=== PATIENT | female | born 1955 | race African-American/Black ===

== ENCOUNTER 2018-07-22 12:34 | Inpatient (IN) | payer OTHER ==
[2018-07-22 13:34] VITALS: BMI 23.5
--- NOTE | 2018-07-22 15:25 | HP ---
COWS - Scale Resting Pulse: 0= [place] 80 or Below Sweatin= Chills/Flushing Restless Observation: 3= Extraneous Movement Pupil Size: 0= Normal to Room Light Bone or Joint Aches: 4=Acute Joint/Muscle Pain Runny Nose/ Eye Tearin= Runny Nose/Eyes GI Upset > 30mins: 1= Stomach Cramp Tremor Observation: 1= Tremor [place], Not Seen Yawning Observation: 2= >3x During Session Anxiety or Irritability: 2=Irritable/Anxious Goose Flesh Skin: 0=Smooth Skin COWS Score: 16 Admission [facility] - [facility] Chief Complaint: HEROIN WITHDRAWAL SX Allergies/Adverse Reactions: Allergies Allergy/AdvReac Type Severity Reaction Status Date / Time No Known Allergies Allergy Verified 07/22/18 13:48 History of Present Illness: PT IS A 63 Y/O AA/FEMALE WITH A HX OF HEROIN DEPENDENCE SEEKING DETOX TX. PT REPORTS WAS HERE 14 YRS AGO AND HAS NOT BEEN IN ANOTHER TX UNTIL MAY 2018 WHEN SHE GOT ON SUBOXONE MAINTENACE WHICH WAS NOT SUSTAINED FOR LONG(SEE RECORD BELOW). PT STATES SHE STOPPED GOING BECAUSE HAD LIFE EVENTS INCLUDING HOMELESSNESS. PT ALSO REPORTS SHE IS CURRENTLY IN [facility] THAT REFERRED HER TO DETOX TODAY. Confidential Drug Utilization Report Search Terms: yakelin dodson, 1955 Search Date: 07/22/2018 03:13:52 PM The Drug Utilization Report below displays all of the controlled substance prescriptions, if any, that your patient has filled in the last twelve months. The information displayed on this report is compiled from pharmacy submissions to the Department, and accurately reflects the information as submitted by the pharmacies. This report was requested by: Radha Deal | Reference #: [id number] You have not added a ROS[facility]O number. Keeping your ROS[facility]O number(s) up to date on the My ROSENDO Numbers page will enable the separation of your prescriptions from others ' in the search results. Others' Prescriptions Patient Name: Yakelin Dodson Date: 1955 Address: [address] [place] [address] Sex: Female Rx Written Rx Dispensed Drug Quantity Days Supply Prescriber Name 06/10/2018 06/10/2018 suboxone 8 mg-2 mg sl film 4 2 Sandrine Love NP 06/05/2018 06/08/2018 suboxone 8 mg-2 mg sl film 16 8 Sandrine Love NP 05/29/2018 06/01/2018 suboxone 8 mg-2 mg sl film 14 7 Sandrine Love NP Exam Limitations: No Limitations - Ebola screening Have you traveled outside of the country in the last 21 days: No Have you had contact with anyone from an Ebola affected area: No Have you been sick,other than usual withdrawal symptoms: No Do you have a fever: No - Review of Systems Constitutional: Chills, Night Sweats, Changes in sleep EENT: reports: Blurred Vision (WEARS GLASSES), Tearing, Nose Congestion Respiratory: reports: No Symptoms reported Cardiac: reports: Lightheadedness GI: reports: Constipated, Nausea, Poor Fluid Intake : reports: No Symptoms Reported Musculoskeletal: reports: Back Pain, Joint Pain (RIGHT KNEE WITH SWELLING( WEARING KNEE BRACE)), Muscle Pain Integumentary: reports: No Symptoms Reported Neuro: reports: Unsteady Gait Endocrine: reports: No Symptoms Reported Hematology: reports: Anemia (ON IRO SUPPLEMENT) Psychiatric: reports: Orientated x3 Other Systems: Reviewed and Negative Patient History - Patient Medical History Hx Anemia: Yes (ON SUPPLEMENT) Hx Asthma: No Hx Chronic Obstructive Pulmonary Disease (COPD): No Hx Cardiac Disorders: No Hx Hypertension: Yes (newly diagnosed-; 173/84 TODAY;FORGOT NAME OF RX MEDICATION.) Hx Hypercholesterolemia: No HX Cerebrovascular Accident: No Hx Seizures: No Hx Diabetes: No Hx Gastrointestinal Disorders: No Hx Genitourinary Disorders: No Hx Sexually Transmitted Disorders: No (DENIES) Hx Renal Disease (ESRD): No Hx Thyroid Disease: No Hx Human Immunodeficiency Virus (HIV): No (NEGATIVE HX) Hx Hepatitis C: No Hx Depression: No Hx Suicide Attempt: No (DENIES S/I) Hx Schizophrenia: No - Patient Surgical History Past Surgical History: Yes Hx Neurologic Surgery: No Hx Cataract Extraction: No Hx Cardiac Surgery: No Hx Lung Surgery: No Hx Breast Surgery: No Hx Breast Biopsy: No Hx Abdominal Surgery: No Hx Appendectomy: No Hx Cholecystectomy: No Hx Genitourinary Surgery: No Hx Section: No Hx Orthopedic Surgery: No Hx Hysterectomy: Yes ( PARTIAL IN 1997) Anesthesia Reaction: No - PPD History Previous Implant?: Yes Documented Results: Negative w/o proof Implanted On Prior R Admission?: No Results: neg PPD to be Administered?: Yes - Reproductive History Patient is a Female of Child Bearing Age (11 -55 yrs old): Yes (HX OF PARTIAL HYSTERECTOMY) LMP comment: "IN MY 40s" Patient : No - Smoking Cessation Smoking history: Current every day smoker (LACED COCAINE WITH CIGARETTES) Have you smoked in the past 12 months: Yes Aproximately how many cigarettes per day: 2 Hx Chewing Tobacco Use: No Initiated information on smoking cessation: Yes 'Breaking Loose' booklet given: 07/22/18 - Substance & Tx. History Hx Alcohol Use: No Hx Substance Use: Yes (HEROIN/CRACK/COCAINE) Substance Use Type: Cocaine, Heroin Hx Substance Use Treatment: Yes (LAST TX AT [facility]) - Substances Abused Cocaine Route: Inhalation Frequency: Daily Amount used: 20 dollars Age of first use: 14 Date of Last Use: 07/21/18 Crack Route: Smoking Frequency: Daily Amount used: 20 dollars Age of first use: 30 Date of Last Use: 07/21/18 Heroin Route: Inhalation Frequency: Daily Amount used: 50 dollars Age of first use: 14 Date of Last Use: 07/21/18 Family Disease History - Family Disease History Family Disease History: Diabetes: Grandparent (GMOTHER-), Mother (HTN; ), Other: Mother Admission Physical Exam S - Vital Signs Vital Signs: Vital Signs - 24 hr 07/22/18 07/22/18 13:23 13:32 Temperature 97.2 F L 97.3 F L Pulse Rate 52 L 46 L Respiratory 20 17 Rate Blood Pressure 173/84 108/63 - Physical General Appearance: Yes: Moderate Distress, Irritable, Anxious HEENTM: Yes: EOMI, ELIZA, Pharynx Normal Respiratory: Yes: Chest Non-Tender, Lungs Clear, Normal Breath Sounds, No Respiratory Distress Neck: Yes: No masses,lesions,Nodules, Supple, Trachea in good position Breast: Yes: Breast Exam Deferred Cardiology: Yes: Regular Rhythm, S1, S2, Bradycardia Abdominal: Yes: Normal Bowel Sounds, Non Tender, Flat, Soft Genitourinary: Yes: Other (1999) Back: Yes: Within Normal Limits Musculoskeletal: Yes: full range of Motion, Gait Steady, Joint swelling (RIGHT KNEE(PT IS WEARING KNEE BRACE) Extremities: Yes: Normal Range of Motion, Non-Tender 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 NML intact, Fully Oriented, Alert Integumentary: Yes: Dry, Warm Lymphatic: Yes: Within Normal Limits - Diagnostic (1) Opioid dependence with withdrawal Current Visit: Yes Status: Chronic (2) Cocaine dependence, uncomplicated Current Visit: Yes Status: Chronic (3) Hypertension Current Visit: Yes Status: Chronic Qualifiers: Hypertension type: essential hypertension Qualified Code(s): I10 - Essential (primary) hypertension (4) History of anemia Current Visit: Yes Status: Suspected Cleared for Admission [facility] - Detox or Rehab [facility] Level of Care: Medically Managed Detox Regimen/Protocol: Methadone [facility] Breath Alcohol Content Breath Alcohol Content: 0 Urine Pregancy Test - Result Urine Test Results: Negative- NO Line Present Urine Drug Screen - Results Drug Screen Negative: No Urine Drug Screen Results: THC-Marijuana, OPI-Opiates, BZO-Benzodiazepines, MTD- Methadone, OXY-Oxycodone
[2018-07-22] MEDS ORDERED: P-EPHED 60MG/TRIPROLIDI 2.5MG TABLET PO PRN (16:11)
[2018-07-22] MEDS ORDERED: MAGNESIUM CITRATE 300 ML BOTTLE PO PRN (16:11)
[2018-07-22] MEDS ORDERED: LOPERAMIDE HCL 2 MG CAPSULE PO PRN (16:11)
[2018-07-22] MEDS ORDERED: diazePAM 5 MG TABLET PO PRN (16:11)
[2018-07-22] MEDS ORDERED: MAGNESIUM HYDROX 2400MG/30ML ORAL SUSPENSION 30 ML CUP PO PRN (16:11)
[2018-07-22] MEDS ORDERED: MAG HYDROX/AL HYDROX/SIMETH 30 ML UNIT-DOSE CUP PO PRN (16:11)
[2018-07-22] MEDS ORDERED: MENTHOL/PHENOL 1 EACH UD MM PRN (16:11)
[2018-07-22] MEDS ORDERED: METHADONE HCL 10 MG TABLET (FOR DETOX USE ONLY) PO ONE ×2 (17:45→23:00)
[2018-07-22] MEDS: amLODIPine BESYLATE 10 MG TABLET (FP) PO SCH (18:29)
[2018-07-22] MEDS ORDERED: MELATONIN 5 MG TABLETS PO PRN (22:00)
[2018-07-22] MEDS: THIAMINE HCL 100 MG TABLET (FP) PO SCH (22:06)
[2018-07-23 00:08] LABS: URINE APPEARANCE SLCLOUDY; URINE BILIRUBIN NEGATIVE (<2.0 mg/dL); URINE COLOR YELLOW; URINE GLUCOSE (UA) NEGATIVE (NEGATIVE); URINE KETONE NEGATIVE (NEGATIVE); URINE LEUK ESTERASE TRACE (NEGATIVE); URINE NITRITE NEGATIVE (NEGATIVE); URINE PROTEIN NEGATIVE (NEGATIVE); URINE UROBILINOGEN NEGATIVE mg/dL (0.2-1.0)
[2018-07-23 00:25] LABS: EPI CELLS MODERATE /HPF (FEW); URINE BACTERIA RARE /hpf (NONE SEEN); URINE MUCUS RARE
[2018-07-23] MEDS: guaiFENesin/D-METHORPHAN HB 10 ML UNIT-DOSE CUPS PO PRN (06:48)
[2018-07-23] MEDS: ACETAMINOPHEN 325 MG TABLET (FP) PO PRN ×2 (06:48→17:10)
[2018-07-23] MEDS ORDERED: METHADONE HCL 10 MG TABLET (FOR DETOX USE ONLY) PO ONE (10:00)
[2018-07-23 10:19] LABS: HEMOGLOBIN 11.3 GM/dL (10.7-15.3); MCH 26.7 pg (25.7-33.7); MCHC 32.3 g/dl (32.0-36.0); MEAN CELL VOLUME 82.5 fl (80-96); MEAN PLT VOLUME 7.4 fl (7.5-11.1); PLATELET COUNT 361 K/MM3 (134-434); RBC 4.25 M/mm3 (3.60-5.2); RDW 14.1 % (11.6-15.6); WHITE BLOOD COUNT 4.6 K/mm3 (4.0-10.0)
[2018-07-23] MEDS: amLODIPine BESYLATE 10 MG TABLET (FP) PO SCH (10:36)
[2018-07-23] MEDS: PRENATAL VITAMINS W/ FOLIC ACID TABLET (FP) PO SCH (10:36)
[2018-07-23] MEDS: IBUPROFEN 400 MG TABLET (FP) PO PRN (10:38)
[2018-07-23 11:40] LABS: SICKLE CELL SCREEN POSITIVE (NEGATIVE)
--- NOTE | 2018-07-23 11:49 | PN ---
S COWS - Scale Resting Pulse: 0= [place] 80 or Below Sweatin= Chills/Flushing Restless Observation: 1= Difficult to Sit Still Pupil Size: 1= Pupils >than Normal Bone or Joint Aches: 2= Severe Diffuse Aches Runny Nose/ Eye Tearin= Nasal Congestion GI Upset > 30mins: 2= Nausea/Diarrhea Tremor Observation of Outstretched Hands: 2= Slight Tremor Visible Yawning Observation: 2= >3x During Session Anxiety or Irritability: 2=Irritable/Anxious Goose Flesh Skin: 0=Smooth Skin COWS Score: 14 BHS Progress Note (SOAP) Subjective: joints pain body aches trouble sleep at night GI distress sweat tremor Objective: 07/23/18 11:48 Vital Signs Temperature 97.7 F 07/23/18 09:31 Pulse Rate 60 07/23/18 09:31 Respiratory Rate 18 07/23/18 09:31 Blood Pressure 130/84 07/23/18 09:31 O2 Sat by Pulse Oximetry (%) Laboratory Last Values WBC 4.6 K/mm3 (4.0-10.0) 07/23/18 07:30 RBC 4.25 M/mm3 (3.60-5.2) 07/23/18 07:30 Hgb 11.3 GM/dL (10.7-15.3) 07/23/18 07:30 Hct 35.0 % (32.4-45.2) 07/23/18 07:30 MCV 82.5 fl (80-96) 07/23/18 07:30 MCH 26.7 pg (25.7-33.7) 07/23/18 07:30 MCHC 32.3 g/dl (32.0-36.0) 07/23/18 07:30 RDW 14.1 % (11.6-15.6) 07/23/18 07:30 Plt Count 361 K/MM3 (134-434) 07/23/18 07:30 MPV 7.4 fl (7.5-11.1) L 07/23/18 07:30 Sickle Cell Screen Positive (NEGATIVE) 07/23/18 07:30 Urine Color Yellow 07/22/18 Unknown Urine Appearance Slcloudy 07/22/18 Unknown Urine pH 6.0 (5.0-8.0) 07/22/18 Unknown Ur Specific [place] 1.014 (1.001-1.035) 07/22/18 Unknown Urine Protein Negative (NEGATIVE) 07/22/18 Unknown Urine Glucose (UA) Negative (NEGATIVE) 07/22/18 Unknown Urine Ketones Negative (NEGATIVE) 07/22/18 Unknown Urine Blood Negative (NEGATIVE) 07/22/18 Unknown Urine Nitrite Negative (NEGATIVE) 07/22/18 Unknown Urine Bilirubin Negative (<2.0 mg/dL) 07/22/18 Unknown Urine Urobilinogen Negative mg/dL (0.2-1.0) 07/22/18 Unknown Ur Leukocyte Esterase Trace (NEGATIVE) 07/22/18 Unknown Urine WBC (Auto) 2 /hpf (3-5) 07/22/18 Unknown Urine RBC (Auto) 1 /hpf (0-3) 07/22/18 Unknown Ur Epithelial Cells Moderate /HPF (FEW) 07/22/18 Unknown Urine Bacteria Rare /hpf (NONE SEEN) 07/22/18 Unknown Urine Mucus Rare 07/22/18 Unknown lab noted Assessment: 07/23/18 11:48 withdrawal sx Plan: continue detox
--- NOTE | 2018-07-23 12:17 | EKG ---
Test Reason : Blood Pressure : / mmHG Vent. Rate : 048 BPM Atrial Rate : 048 BPM P-R Int : 208 ms QRS Dur : 096 ms QT Int : 428 ms P-R-T Axes : 057 029 041 degrees QTc Int : 382 ms SINUS BRADYCARDIA MODERATE VOLTAGE CRITERIA FOR LVH, MAY BE NORMAL VARIANT BORDERLINE ECG NO PREVIOUS ECGS AVAILABLE Confirmed by BRAD WAGGONER MD (2014) on 07/23/2018 12:17:41 PM Referred By: Confirmed By:BRAD WAGGONER MD
[2018-07-23 12:30] LABS: CHLORIDE 108 mmol/L (98-107); POTASSIUM 4.8 mmol/L (3.5-5.1); SODIUM 144 mmol/L (136-145)
[2018-07-23 12:56] LABS: ALBUMIN 3.5 g/dl (3.4-5.0); ALK PHOS 68 U/L (45-117); ANION GAP 8 MMOL/L (8-16); BILIRUBIN,TOTAL 0.7 mg/dL (0.2-1.0); BLOOD UREA NITROGEN 15 mg/dL (7-18); CALCIUM 9.8 mg/dL (8.5-10.1); CO2 28 mmol/L (21-32); CREATININE 0.9 mg/dL (0.55-1.02); GLUCOSE,RANDOM 91 mg/dL (74-106); SGOT/AST 16 U/L (15-37); SGPT/ALT 15 U/L (12-78); TOT PROT 7.6 g/dl (6.4-8.2)
[2018-07-23] MEDS: THIAMINE HCL 100 MG TABLET (FP) PO SCH (22:30)
[2018-07-23] MEDS: BACLOFEN 10 MG TABLET (FP) PO PRN (22:39)
[2018-07-24] MEDS: guaiFENesin/D-METHORPHAN HB 10 ML UNIT-DOSE CUPS PO PRN ×2 (07:14→17:31)
[2018-07-24] MEDS ORDERED: METHADONE HCL 5 MG TABLET (FOR DETOX USE ONLY) PO ONE (10:00)
[2018-07-24] MEDS: amLODIPine BESYLATE 10 MG TABLET (FP) PO SCH (10:25)
[2018-07-24] MEDS: BACLOFEN 10 MG TABLET (FP) PO PRN ×2 (10:25→22:17)
[2018-07-24] MEDS: PRENATAL VITAMINS W/ FOLIC ACID TABLET (FP) PO SCH (10:26)
[2018-07-24] MEDS: METHYL SALICYLATE/MENTHOL OINT 30 GM TUBE TP SCH ×2 (10:26→22:17)
--- NOTE | 2018-07-24 11:50 | PN ---
BHS COWS - Scale Resting Pulse: 0= [place] 80 or Below Sweatin=Flushed/Facial Moisture Restless Observation: 1= Difficult to Sit Still Pupil Size: 1= Pupils >than Normal Bone or Joint Aches: 2= Severe Diffuse Aches Runny Nose/ Eye Tearin= Nasal Congestion GI Upset > 30mins: 1= Stomach Cramp Tremor Observation of Outstretched Hands: 0= None Yawning Observation: 0= None Anxiety or Irritability: 1=Feels Anxious/Irritable Goose Flesh Skin: 0=Smooth Skin COWS Score: 9 BHS Progress Note (SOAP) Subjective: intewrrupted sleep, sweats, rt knee pain Objective: 07/24/18 11:48 Vital Signs Temperature 97.9 F 07/24/18 06:00 Pulse Rate 56 L 07/24/18 06:00 Respiratory Rate 18 07/24/18 06:00 Blood Pressure 121/68 07/24/18 06:00 O2 Sat by Pulse Oximetry (%) Laboratory Tests 07/22/18 07/23/18 07/23/18 Unknown 07:30 07:30 WBC 4.6 RBC 4.25 Hgb 11.3 Hct 35.0 MCV 82.5 MCH 26.7 MCHC 32.3 RDW 14.1 Plt Count 361 MPV 7.4 L Sickle Cell Screen Positive Sodium 144 Potassium 4.8 Chloride 108 H Carbon Dioxide 28 Anion Gap 8 BUN 15 Creatinine 0.9 Creat Clearance w eGFR > 60 Random Glucose 91 Calcium 9.8 Total Bilirubin 0.7 AST 16 ALT 15 Alkaline Phosphatase 68 Total Protein 7.6 Albumin 3.5 Urine Color Yellow Urine Appearance Slcloudy Urine pH 6.0 Ur Specific [place] 1.014 Urine Protein Negative Urine Glucose (UA) Negative Urine Ketones Negative Urine Blood Negative Urine Nitrite Negative Urine Bilirubin Negative Urine Urobilinogen Negative Ur Leukocyte Esterase Trace Urine WBC (Auto) 2 Urine RBC (Auto) 1 Ur Epithelial Cells Moderate Urine Bacteria Rare Urine Mucus Rare RPR Titer 07/23/18 07:30 WBC RBC Hgb Hct MCV MCH MCHC RDW Plt Count MPV Sickle Cell Screen Sodium Potassium Chloride Carbon Dioxide Anion Gap BUN Creatinine Creat Clearance w eGFR Random Glucose Calcium Total Bilirubin AST ALT Alkaline Phosphatase Total Protein Albumin Urine Color Urine Appearance Urine pH Ur Specific [place] Urine Protein Urine Glucose (UA) Urine Ketones Urine Blood Urine Nitrite Urine Bilirubin Urine Urobilinogen Ur Leukocyte Esterase Urine WBC (Auto) Urine RBC (Auto) Ur Epithelial Cells Urine Bacteria Urine Mucus RPR Titer Nonreactive pt aox3 in nad lying in bed rt knee swelling -pt has rt knee brace Assessment: 07/24/18 11:49 withdrawal sx;s rt knee arthritis Plan: cont detox increase fluids analgesic balm bid has ortho f/up
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
[2018-07-24] MEDS: THIAMINE HCL 100 MG TABLET (FP) PO SCH (22:17)
[2018-07-25] MEDS ORDERED: METHADONE HCL 5 MG TABLET (FOR DETOX USE ONLY) PO ONE (10:00)
[2018-07-25] MEDS: METHYL SALICYLATE/MENTHOL OINT 30 GM TUBE TP SCH ×2 (10:26→10:50)
[2018-07-25] MEDS: PRENATAL VITAMINS W/ FOLIC ACID TABLET (FP) PO SCH (10:27)
[2018-07-25] MEDS: amLODIPine BESYLATE 10 MG TABLET (FP) PO SCH (10:27)
[2018-07-25] MEDS ORDERED: NICOTINE POLACRILEX 2 MG GUM BUC PRN (11:53)
--- NOTE | 2018-07-25 12:28 | PN ---
S Progress Note (SOAP) Subjective: joints pain muscle cramping sweat tremor irritable Objective: 07/25/18 12:27 Vital Signs Temperature 98.1 F 07/25/18 09:26 Pulse Rate 56 L 07/25/18 09:26 Respiratory Rate 16 07/25/18 09:26 Blood Pressure 120/70 07/25/18 09:26 O2 Sat by Pulse Oximetry (%) Laboratory Last Values WBC 4.6 K/mm3 (4.0-10.0) 07/23/18 07:30 RBC 4.25 M/mm3 (3.60-5.2) 07/23/18 07:30 Hgb 11.3 GM/dL (10.7-15.3) 07/23/18 07:30 Hct 35.0 % (32.4-45.2) 07/23/18 07:30 MCV 82.5 fl (80-96) 07/23/18 07:30 MCH 26.7 pg (25.7-33.7) 07/23/18 07:30 MCHC 32.3 g/dl (32.0-36.0) 07/23/18 07:30 RDW 14.1 % (11.6-15.6) 07/23/18 07:30 Plt Count 361 K/MM3 (134-434) 07/23/18 07:30 MPV 7.4 fl (7.5-11.1) L 07/23/18 07:30 Sickle Cell Screen Positive (NEGATIVE) 07/23/18 07:30 Sodium 144 mmol/L (136-145) 07/23/18 07:30 Potassium 4.8 mmol/L (3.5-5.1) 07/23/18 07:30 Chloride 108 mmol/L (98-107) H 07/23/18 07:30 Carbon Dioxide 28 mmol/L (21-32) 07/23/18 07:30 Anion Gap 8 MMOL/L (8-16) 07/23/18 07:30 BUN 15 mg/dL (7-18) 07/23/18 07:30 Creatinine 0.9 mg/dL (0.55-1.02) 07/23/18 07:30 Creat Clearance w eGFR > 60 (>60) 07/23/18 07:30 Random Glucose 91 mg/dL (74-106) 07/23/18 07:30 Calcium 9.8 mg/dL (8.5-10.1) 07/23/18 07:30 Total Bilirubin 0.7 mg/dL (0.2-1.0) 07/23/18 07:30 AST 16 U/L (15-37) 07/23/18 07:30 ALT 15 U/L (12-78) 07/23/18 07:30 Alkaline Phosphatase 68 U/L (45-117) 07/23/18 07:30 Total Protein 7.6 g/dl (6.4-8.2) 07/23/18 07:30 Albumin 3.5 g/dl (3.4-5.0) 07/23/18 07:30 Urine Color Yellow 07/22/18 Unknown Urine Appearance Slcloudy 07/22/18 Unknown Urine pH 6.0 (5.0-8.0) 07/22/18 Unknown Ur Specific [place] 1.014 (1.001-1.035) 07/22/18 Unknown Urine Protein Negative (NEGATIVE) 07/22/18 Unknown Urine Glucose (UA) Negative (NEGATIVE) 07/22/18 Unknown Urine Ketones Negative (NEGATIVE) 07/22/18 Unknown Urine Blood Negative (NEGATIVE) 07/22/18 Unknown Urine Nitrite Negative (NEGATIVE) 07/22/18 Unknown Urine Bilirubin Negative (<2.0 mg/dL) 07/22/18 Unknown Urine Urobilinogen Negative mg/dL (0.2-1.0) 07/22/18 Unknown Ur Leukocyte Esterase Trace (NEGATIVE) 07/22/18 Unknown Urine WBC (Auto) 2 /hpf (3-5) 07/22/18 Unknown Urine RBC (Auto) 1 /hpf (0-3) 07/22/18 Unknown Ur Epithelial Cells Moderate /HPF (FEW) 07/22/18 Unknown Urine Bacteria Rare /hpf (NONE SEEN) 07/22/18 Unknown Urine Mucus Rare 07/22/18 Unknown RPR Titer Nonreactive (NONREACTIVE) 07/23/18 07:30 lab noted Assessment: 07/25/18 12:28 withdrawal sx Plan: continue detox
[2018-07-25] MEDS: NICOTINE 14 MG/24 HOURS TOPICAL PATCH TD SCH (13:09)
[2018-07-25] MEDS: THIAMINE HCL 100 MG TABLET (FP) PO SCH (22:30)
[2018-07-25] MEDS: ACETAMINOPHEN 325 MG TABLET (FP) PO PRN (22:31)
[2018-07-25] MEDS: BACLOFEN 10 MG TABLET (FP) PO PRN (22:31)
[2018-07-26] MEDS: ACETAMINOPHEN 325 MG TABLET (FP) PO PRN (05:38)
[2018-07-26] MEDS ORDERED: METHADONE HCL 10 MG TABLET (FOR DETOX USE ONLY) PO ONE (10:00)
[2018-07-26] MEDS: PRENATAL VITAMINS W/ FOLIC ACID TABLET (FP) PO SCH (10:15)
[2018-07-26] MEDS: amLODIPine BESYLATE 10 MG TABLET (FP) PO SCH (10:15)
[2018-07-26] MEDS: METHYL SALICYLATE/MENTHOL OINT 30 GM TUBE TP SCH ×2 (10:16→22:19)
[2018-07-26] MEDS: BACLOFEN 10 MG TABLET (FP) PO PRN (10:16)
[2018-07-26] MEDS: NICOTINE 14 MG/24 HOURS TOPICAL PATCH TD SCH (10:17)
--- NOTE | 2018-07-26 12:24 | PN ---
S Progress Note (SOAP) Subjective: feeling better no tremor less sweat no gi distress social with peers in day room Objective: 07/26/18 12:23 Vital Signs Temperature 98.6 F 07/26/18 09:38 Pulse Rate 60 07/26/18 09:38 Respiratory Rate 16 07/26/18 09:38 Blood Pressure 125/75 07/26/18 09:38 O2 Sat by Pulse Oximetry (%) Laboratory Last Values WBC 4.6 K/mm3 (4.0-10.0) 07/23/18 07:30 RBC 4.25 M/mm3 (3.60-5.2) 07/23/18 07:30 Hgb 11.3 GM/dL (10.7-15.3) 07/23/18 07:30 Hct 35.0 % (32.4-45.2) 07/23/18 07:30 MCV 82.5 fl (80-96) 07/23/18 07:30 MCH 26.7 pg (25.7-33.7) 07/23/18 07:30 MCHC 32.3 g/dl (32.0-36.0) 07/23/18 07:30 RDW 14.1 % (11.6-15.6) 07/23/18 07:30 Plt Count 361 K/MM3 (134-434) 07/23/18 07:30 MPV 7.4 fl (7.5-11.1) L 07/23/18 07:30 Sickle Cell Screen Positive (NEGATIVE) 07/23/18 07:30 Sodium 144 mmol/L (136-145) 07/23/18 07:30 Potassium 4.8 mmol/L (3.5-5.1) 07/23/18 07:30 Chloride 108 mmol/L (98-107) H 07/23/18 07:30 Carbon Dioxide 28 mmol/L (21-32) 07/23/18 07:30 Anion Gap 8 MMOL/L (8-16) 07/23/18 07:30 BUN 15 mg/dL (7-18) 07/23/18 07:30 Creatinine 0.9 mg/dL (0.55-1.02) 07/23/18 07:30 Creat Clearance w eGFR > 60 (>60) 07/23/18 07:30 Random Glucose 91 mg/dL (74-106) 07/23/18 07:30 Calcium 9.8 mg/dL (8.5-10.1) 07/23/18 07:30 Total Bilirubin 0.7 mg/dL (0.2-1.0) 07/23/18 07:30 AST 16 U/L (15-37) 07/23/18 07:30 ALT 15 U/L (12-78) 07/23/18 07:30 Alkaline Phosphatase 68 U/L (45-117) 07/23/18 07:30 Total Protein 7.6 g/dl (6.4-8.2) 07/23/18 07:30 Albumin 3.5 g/dl (3.4-5.0) 07/23/18 07:30 Urine Color Yellow 07/22/18 Unknown Urine Appearance Slcloudy 07/22/18 Unknown Urine pH 6.0 (5.0-8.0) 07/22/18 Unknown Ur Specific [place] 1.014 (1.001-1.035) 07/22/18 Unknown Urine Protein Negative (NEGATIVE) 07/22/18 Unknown Urine Glucose (UA) Negative (NEGATIVE) 07/22/18 Unknown Urine Ketones Negative (NEGATIVE) 07/22/18 Unknown Urine Blood Negative (NEGATIVE) 07/22/18 Unknown Urine Nitrite Negative (NEGATIVE) 07/22/18 Unknown Urine Bilirubin Negative (<2.0 mg/dL) 07/22/18 Unknown Urine Urobilinogen Negative mg/dL (0.2-1.0) 07/22/18 Unknown Ur Leukocyte Esterase Trace (NEGATIVE) 07/22/18 Unknown Urine WBC (Auto) 2 /hpf (3-5) 07/22/18 Unknown Urine RBC (Auto) 1 /hpf (0-3) 07/22/18 Unknown Ur Epithelial Cells Moderate /HPF (FEW) 07/22/18 Unknown Urine Bacteria Rare /hpf (NONE SEEN) 07/22/18 Unknown Urine Mucus Rare 07/22/18 Unknown RPR Titer Nonreactive (NONREACTIVE) 07/23/18 07:30 lab noted Assessment: 07/26/18 12:23 mild withdrawal sx Plan: medically supervised detox
[2018-07-26] MEDS: THIAMINE HCL 100 MG TABLET (FP) PO SCH (22:19)
[2018-07-26] MEDS: IBUPROFEN 400 MG TABLET (FP) PO PRN (22:20)
[2018-07-27] MEDS: ACETAMINOPHEN 325 MG TABLET (FP) PO PRN (02:49)
[2018-07-27] MEDS ORDERED: METHADONE HCL 5 MG TABLET (FOR DETOX USE ONLY) PO ONE (06:00)
--- NOTE | 2018-07-27 08:35 | DS ---
[facility] Detox Discharge Summary Admission Date: 07/22/18 Discharge Date: 07/27/18 - History Present History: Opioid Dependence Additional Comments: 63 years old female admitted on 07/22/18 for opiate withdrawal sx completed opiate detox regimen tolerate well denies opiate withdrawal sx alert oriented x 3 no acute distress aftercare [facility] - Physical Exam Results Vital Signs: Vital Signs Temperature 97.7 F 07/27/18 06:00 Pulse Rate 57 L 07/27/18 06:00 Respiratory Rate 18 07/27/18 06:00 Blood Pressure 144/87 07/27/18 06:00 O2 Sat by Pulse Oximetry (%) Pertinent Admission Physical Exam Findings: opiate withdrawal sx Vital Signs Temperature 97.9 F 07/27/18 09:31 Pulse Rate 80 07/27/18 11:38 Respiratory Rate 18 07/27/18 11:38 Blood Pressure 148/97 07/27/18 11:38 O2 Sat by Pulse Oximetry (%) Laboratory Last Values WBC 4.6 K/mm3 (4.0-10.0) 07/23/18 07:30 RBC 4.25 M/mm3 (3.60-5.2) 07/23/18 07:30 Hgb 11.3 GM/dL (10.7-15.3) 07/23/18 07:30 Hct 35.0 % (32.4-45.2) 07/23/18 07:30 MCV 82.5 fl (80-96) 07/23/18 07:30 MCH 26.7 pg (25.7-33.7) 07/23/18 07:30 MCHC 32.3 g/dl (32.0-36.0) 07/23/18 07:30 RDW 14.1 % (11.6-15.6) 07/23/18 07:30 Plt Count 361 K/MM3 (134-434) 07/23/18 07:30 MPV 7.4 fl (7.5-11.1) L 07/23/18 07:30 Sickle Cell Screen Positive (NEGATIVE) 07/23/18 07:30 Sodium 144 mmol/L (136-145) 07/23/18 07:30 Potassium 4.8 mmol/L (3.5-5.1) 07/23/18 07:30 Chloride 108 mmol/L (98-107) H 07/23/18 07:30 Carbon Dioxide 28 mmol/L (21-32) 07/23/18 07:30 Anion Gap 8 MMOL/L (8-16) 07/23/18 07:30 BUN 15 mg/dL (7-18) 07/23/18 07:30 Creatinine 0.9 mg/dL (0.55-1.02) 07/23/18 07:30 Creat Clearance w eGFR > 60 (>60) 07/23/18 07:30 Random Glucose 91 mg/dL (74-106) 07/23/18 07:30 Calcium 9.8 mg/dL (8.5-10.1) 07/23/18 07:30 Total Bilirubin 0.7 mg/dL (0.2-1.0) 07/23/18 07:30 AST 16 U/L (15-37) 07/23/18 07:30 ALT 15 U/L (12-78) 07/23/18 07:30 Alkaline Phosphatase 68 U/L (45-117) 07/23/18 07:30 Total Protein 7.6 g/dl (6.4-8.2) 07/23/18 07:30 Albumin 3.5 g/dl (3.4-5.0) 07/23/18 07:30 Urine Color Yellow 07/22/18 Unknown Urine Appearance Slcloudy 07/22/18 Unknown Urine pH 6.0 (5.0-8.0) 07/22/18 Unknown Ur Specific [place] 1.014 (1.001-1.035) 07/22/18 Unknown Urine Protein Negative (NEGATIVE) 07/22/18 Unknown Urine Glucose (UA) Negative (NEGATIVE) 07/22/18 Unknown Urine Ketones Negative (NEGATIVE) 07/22/18 Unknown Urine Blood Negative (NEGATIVE) 07/22/18 Unknown Urine Nitrite Negative (NEGATIVE) 07/22/18 Unknown Urine Bilirubin Negative (<2.0 mg/dL) 07/22/18 Unknown Urine Urobilinogen Negative mg/dL (0.2-1.0) 07/22/18 Unknown Ur Leukocyte Esterase Trace (NEGATIVE) 07/22/18 Unknown Urine WBC (Auto) 2 /hpf (3-5) 07/22/18 Unknown Urine RBC (Auto) 1 /hpf (0-3) 07/22/18 Unknown Ur Epithelial Cells Moderate /HPF (FEW) 07/22/18 Unknown Urine Bacteria Rare /hpf (NONE SEEN) 07/22/18 Unknown Urine Mucus Rare 07/22/18 Unknown RPR Titer Nonreactive (NONREACTIVE) 07/23/18 07:30 lab noted - Treatment Hospital Course: Detox Protocol Followed, Detoxed Safely, Responded well, Discharged Condition Good, Rehab Referral Accepted Patient has Accepted a Rehab Referral to: [facility] - Medication Discharge Medications: Ambulatory Orders Ferrous Sulfate [Feosol] 325 mg PO DAILY 07/22/18 Amlodipine Besylate [Norvasc -] 5 mg PO DAILY #30 tablet 07/26/18 - Diagnosis (1) Anemia Status: Chronic Qualifiers: Anemia type: iron deficiency Iron deficiency anemia type: unspecified iron deficiency Qualified Code(s): D50.9 - Iron deficiency anemia, unspecified (2) Opioid dependence with withdrawal Status: Acute (3) Hypertension Status: Chronic Qualifiers: Hypertension type: essential hypertension Qualified Code(s): I10 - Essential (primary) hypertension - AMA Did Patient Leave Against Medical Advice: No
[2018-07-27] MEDS: NICOTINE 14 MG/24 HOURS TOPICAL PATCH TD SCH (09:21)
[2018-07-27] MEDS: METHYL SALICYLATE/MENTHOL OINT 30 GM TUBE TP SCH (09:21)
[2018-07-27] MEDS: PRENATAL VITAMINS W/ FOLIC ACID TABLET (FP) PO SCH (09:23)
[2018-07-27] MEDS: amLODIPine BESYLATE 10 MG TABLET (FP) PO SCH (09:23)
[2018-07-27 09:32] VITALS: TEMP 97.9
[2018-07-27 11:39] VITALS: BP 148/97; PULSE 80
[2018-07-29 16:22] LABS: HGB SOLUBILITY Positive (Negative); Hgb A 58.5 % (96.4-98.8); Hgb C 0 % (0.0); Hgb F 0 % (0.0-2.0); Hgb S 37.2 % (0.0)
== END 2018-07-27 10:18 | disposition home or self-care (01) | DRG 773 ==
LOC: YASAS 12:34 → Y6N 17:26
PROC: HZ2ZZZZ Detoxification Services for Substance Abuse Treatment (ICD-10-PCS; principal; 2018-07-22)
DX: F11.23 Opioid dependence with withdrawal (principal); F14.20 Cocaine dependence, uncomplicated; I10 Essential (primary) hypertension; D50.9 Iron deficiency anemia, unspecified
CPT/HCPCS: 36415; 80053; 81003; 81015; 83021; 85027; 85660; 86593; 93005; 93010; J0475